=== PATIENT | male | born 1995 | race Caucasian/White ===

== ENCOUNTER 2016-09-08 18:49 | Emergency (ER) | payer OTHER ==
[~2016-09-08] VITALS: Ht 188 cm; Wt 97.4 kg
[2016-09-08 18:51] VITALS: TEMP 36.7; Ht 188 cm; Wt 97.4 kg
[2016-09-08 19:59] LABS: BASO % 0.5 %; BASO ABS # 0.03 K/uL (0-0.2); COMPLETE YES; EOS % 3.4 %; IG% 0.2 %; LYMPH % 32.3 %; LYMPH ABS # 1.97 K/uL (1.2-3.4); MEAN CELL VOLUME 84.9 fL (80-100); MEAN CORPUSCULAR HEMOGLOBIN 31.7 pg (25-34); MEAN CORPUSCULAR HGB CONC 37.3 g/dl (32-36); MEAN PLATELET VOLUME 9.3 fL (7.4-10.4); NEUT % 55.6 %; PLATELET COUNT 254 K/uL (130-400); WHITE BLOOD COUNT 6.09 K/uL (4.8-10.8)
[2016-09-08] MEDS ORDERED: RISP0.5T10 PO (20:05)
[2016-09-08] MEDS ORDERED: LITH1TAB PO (20:05)
[2016-09-08 20:13] LABS: BENZODIAZEPINE, URINE POS (NEG); COCAINE,URINE NEG (NEG); PHENCYCLIDINE, URINE NEG (NEG)
[2016-09-08 20:35] LABS: BUN/CREATININE RATIO 10.5 (10-20); CALCIUM 8.6 mg/dl (8.5-10.1); CREATININE 1.3 mg/dl (0.60-1.40); POTASSIUM 3.8 mmol/L (3.5-5.1)
[2016-09-08 20:39] LABS: ACETAMINOPHEN < 2 ug/ml (10-30)
[2016-09-08 20:46] LABS: ALB/GLOB RATIO 1.5 (0.9-2); THYROID STIMULATING HORMONE 1.71 uIu/ml (0.300-4.500)
--- NOTE | 2016-09-08 21:24 | EMERGENCY ROOM VISIT NOTE ---
History Report prepared by Brandyn: Amy Harmon Under the Supervision of: Dr. Jibmo Carmona D.O. First contact with patient: 18:57 Chief Complaint: DETOX REQUEST Stated Complaint: ALCOHOL WITHDRAWL Nursing Triage Summary: Patient ambulatory to triage, states "I am just withdrawing really bad from alcohol and xanax." Patient last took xanax about 3 hours ago. Last alcoholic beverage was last night. History of Present Illness The patient is a 20 year old male who presents to the Emergency Room with complaints of constant symptoms of withdrawal from Xanax and alcohol beginning tonight. The patient states "I am a mess". He notes he has a pounding headache and muscle aches. He states he normally drinks 3 times a week and his last drink was last night. The patient also notes he does Xanax Wednesday morning through Wednesday night takes 1/4 mg 4 times a day. He states that he "just needs something to help him get through the night before going home tomorrow for spring". Patient denies any other symptoms at this time. Source of History: patient Onset: tonight Position: other (global) Quality: other (withdrawal symptoms) Timing: constant Associated Symptoms: + headache Note: Patient is experiencing muscle aches. He denies any other symptoms at this time. Review of Systems See HPI for pertinent positives & negatives. A total of 10 systems reviewed and were otherwise negative. Past Medical & Surgical Medical Problems: (1) Alcohol intoxication (2) Anxiety Surgical Problems: (1) [place] teeth removed Family History FH: heart disease FHx: alcoholism FHx: cancer FHx: mental illness Hypertension Kidney disease Kidney stones Social History Smoking Status: Current Every Day Smoker Alcohol Use: occasionally Drug Use: marijuana Marital Status: single Housing Status: lives with roommate Occupation Status: [employer] student Current/Historical Medications Scheduled [place] Carbonate Ext Rel (Lithobid Ext Rel), 450 MG PO BID Risperidone (Risperdal), 0.5 MG PO HS Allergies Coded Allergies: No Known Allergies (Unverified , 09/08/16) Physical Exam Vital Signs Date Time Temp Pulse Resp B/P Pulse Ox O2 Delivery O2 Flow Rate FiO2 09/08/16 20:50 69 18 138/97 96 Room Air 09/08/16 18:51 36.7 103 16 142/96 98 Room Air Physical Exam CONSTITUTIONAL/VITAL SIGNS: Reviewed / noted above. GENERAL: Non-toxic in appearance. INTEGUMENTARY: Warm, dry, and [place]. HEAD: Normocephalic. EYES: without scleral icterus or trauma. ENT/OROPHARYNX: clear and moist. LYMPHADENOPATHY/NECK: Is supple without lymphadenopathy or meningismus. RESPIRATORY: Lungs clear and equal. CARDIOVASCULAR: Regular rate and rhythm. GI/ABDOMEN: Soft and nontender. No organomegaly or pulsatile mass. No rebound or guarding. Normal bowel sounds. EXTREMITIES: Warm and well perfused. BACK: No CVA tenderness. NEUROLOGICAL: Intact without focal deficits. PSYCHIATRIC: normal affect. MUSCULOSKELETAL: Normally developed with good muscle tone. Medical Decision & Procedures Laboratory Results 09/08/16 19:46 Red Blood Count 5.30, Mean Corpuscular Volume 84.9, Mean Corpuscular Hemoglobin 31.7, Mean Corpuscular Hemoglobin Concent 37.3, Mean Platelet Volume 9.3, Neutrophils (%) (Auto) 55.6, Lymphocytes (%) (Auto) 32.3, Monocytes (%) (Auto) 8.0, Eosinophils (%) (Auto) 3.4, Basophils (%) (Auto) 0.5, Neutrophils # (Auto) 3.38, Lymphocytes # (Auto) 1.97, Monocytes # (Auto) 0.49, Eosinophils # (Auto) 0.21, Basophils # (Auto) 0.03 09/08/16 19:46 Test 09/08/16 18:58 09/08/16 19:46 Urine Opiates Screen NEG (NEG) Urine Methadone, Qualitative NEG (NEG) Urine Barbiturates NEG (NEG) Urine Phencyclidine (PCP) Level NEG (NEG) Ur Amphetamine/Methamphetamine NEG (NEG) MDMA (Ecstasy) Screen NEG (NEG) Urine Benzodiazepines Screen POS (NEG) Urine Cocaine Metabolite NEG (NEG) Urine Marijuana (THC) NEG (NEG) White Blood Count 6.09 K/uL (4.8-10.8) Red Blood Count 5.30 M/uL (4.7-6.1) Hemoglobin 16.8 g/dL (14.0-18.0) Hematocrit 45.0 % (42-52) Mean Corpuscular Volume 84.9 fL (80-100) Mean Corpuscular Hemoglobin 31.7 pg (25-34) Mean Corpuscular Hemoglobin Concent 37.3 g/dl (32-36) Platelet Count 254 K/uL (130-400) Mean Platelet Volume 9.3 fL (7.4-10.4) Neutrophils (%) (Auto) 55.6 % Lymphocytes (%) (Auto) 32.3 % Monocytes (%) (Auto) 8.0 % Eosinophils (%) (Auto) 3.4 % Basophils (%) (Auto) 0.5 % Neutrophils # (Auto) 3.38 K/uL (1.4-6.5) Lymphocytes # (Auto) 1.97 K/uL (1.2-3.4) Monocytes # (Auto) 0.49 K/uL (0.11-0.59) Eosinophils # (Auto) 0.21 K/uL (0-0.5) Basophils # (Auto) 0.03 K/uL (0-0.2) RDW Standard Deviation 36.2 fL (36.4-46.3) RDW Coefficient of Variation 11.7 % (11.5-14.5) Immature Granulocyte % (Auto) 0.2 % Immature Granulocyte # (Auto) 0.01 K/uL (0.00-0.02) Anion Gap 11.0 mmol/L (3-11) Est Creatinine Clear Calc Drug Dose 104.6 ml/min Estimated GFR () 90.4 Estimated GFR (Non- 78.0 BUN/Creatinine Ratio 10.5 (10-20) Calcium Level 8.6 mg/dl (8.5-10.1) Total Bilirubin 0.9 mg/dl (0.2-1) Aspartate Amino Transf (AST/SGOT) 49 U/L (15-37) Alanine Aminotransferase (ALT/SGPT) 155 U/L (12-78) Alkaline Phosphatase 82 U/L (45-117) Total Protein 7.2 gm/dl (6.4-8.2) Albumin 4.3 gm/dl (3.4-5.0) Globulin 2.9 gm/dl (2.5-4.0) Albumin/Globulin Ratio 1.5 (0.9-2) Thyroid Stimulating Hormone (TSH) 1.710 uIu/ml (0.300-4.500) Salicylates Level < 1.7 mg/dl (2.8-20) Acetaminophen Level < 2 ug/ml (10-30) Ethyl Alcohol mg/dL < 3.0 mg/dl (0-3) Laboratory results as stated above per my review. ECG Indication: other (withdrawal) Rate (beats per minute): 68 Rhythm: sinus with SA Findings: no acute ischemic change, no ectopy ED Course 1899: Previous medical records were reviewed. The patient was evaluated in room A6. A complete history and physical examination was performed. 2113: On reevaluation, the patient is hemodynamically stable. I discussed the results and findings with the patient. He verbalized agreement of the treatment plan. He was discharged home. Medical Decision differential includes toxic ingestions, self-mutilation, suicidal ideation, suicide attempt, depression. This is a 20-year-old male who presents to the ED with a chief complaint of feeling he was in withdrawal from Xanax and alcohol. The patient reports a headache and some achiness. He states that his last alcohol consumption was last night. He normally drinks 3 times per week. He also reports abusing Xanax on the weekends. He states that he uses 25 mg of Xanax 4 times a day over the weekends. Normally on Wednesday, Wednesday and Wednesday. The patient states that he felt unusual tonight and was concerning came in for evaluation. His physical exam was unremarkable. EKG shows a sinus rhythm. Complete metabolic panel was unremarkable. ALT is slightly elevated. TSH is normal. Tox screen is positive for benzos. The patient was told results the test. He appears to be stable. I am not concerned about acute withdrawal. The patient is felt to be stable for discharge. Impression Primary Impression: Anxiety Additional Impression: Substance abuse Scribe Attestation The scribe's documentation has been prepared under my direction and personally reviewed by me in its entirety. I confirm that the note above accurately reflects all work, treatment, procedures, and medical decision making performed by me. Departure Information Dispostion Home / Self-Care Referrals No Doctor, Assigned (PCP) Forms HOME CARE DOCUMENTATION FORM, IMPORTANT VISIT INFORMATION, WORK / SCHOOL INSTRUCTIONS Patient Instructions My [facility] Additional Instructions Follow-up with [facility] for recheck. Return for any worsening or other concerns. Problem Qualifiers
[2016-09-08 21:41] VITALS: BP 130/112; PULSE 76; O2SAT 98
[2016-09-11 12:52] LABS: HYDROXYETHYLFLURAZEPAM CONF NEGATIVE NG/ML (CUTOFF=50); HYDROXYMIDAZOLAM NEGATIVE NG/ML (CUTOFF=50); HYDROXYTRIAZOLAM CONF NEGATIVE NG/ML (CUTOFF=50); TEMAZEPAM CONF NEGATIVE NG/ML (CUTOFF=50)
== END 2016-09-08 21:43 | disposition home or self-care (01) ==
LOC: C.EDB 18:50 → C.EDA 21:43
DX: F41.9 Anxiety disorder, unspecified (principal); F13.10 Sedative, hypnotic or anxiolytic abuse, uncomplicated; F10.10 Alcohol abuse, uncomplicated; F17.210 Nicotine dependence, cigarettes, uncomplicated; Z79.899 Other long term (current) drug therapy

== ENCOUNTER 2016-10-31 21:09 | Emergency (ER) | payer OTHER ==
[~2016-10-31] VITALS: Ht 190.5 cm; Wt 107.9 kg
[2016-10-31 21:09] VITALS: TEMP 36.8; O2SAT 96; Ht 190.5 cm; Wt 107.9 kg
[~2016-10-31 21:09] MED LIST: LITH1TAB PO; RISP0.5T10 PO
[2016-10-31 22:13] LABS: BUN/CREATININE RATIO 9.5 (10-20); CREATININE 1.1 mg/dl (0.60-1.40); POTASSIUM 3.8 mmol/L (3.5-5.1)
[2016-10-31 22:16] LABS: CALCIUM 8.7 mg/dl (8.5-10.1)
--- NOTE | 2016-10-31 23:21 | EMERGENCY ROOM VISIT NOTE ---
History First contact with patient: 21:21 Chief Complaint: ALCOHOL OVERDOSE Stated Complaint: ETOH Nursing Triage Summary: Patient presents to ER via EMS. Patient is responsive and agitated. Patient verbalizes "Do not touch me." to EMS personnel. Patient moved to [address] uneventfully. Patient cooperating with staff. Per EMS, police found patient with friends in the [place] near the [place] lot at [facility]. Patient was compative, agitated and swearing. ROCHELLE .[id number]. History of Present Illness The patient is a 21 year old male who presents to the Emergency Room the [facility] for evaluation of the possible alcohol overdose. History is limited secondary to patient's intoxicated state. Per EMS, the patient was found with friends in the [place] near a tailgate. The patient was apparently combative, agitated and swearing and was brought here for evaluation. The patient admits to drinking liquor tonight. He denies any drug use. He denies any trauma. Review of Systems A complete 10-point Review of Systems was discussed with the patient, with pertinent positives and negatives listed in the History of Present Illness. All remaining Review of Systems questions can be considered negative unless otherwise specified. Past Medical/Surgical History Medical Problems: (1) Alcohol intoxication (2) Anxiety Surgical Problems: (1) [place] teeth removed Family History FH: heart disease FHx: alcoholism FHx: cancer FHx: mental illness Hypertension Kidney disease Kidney stones Social History Smoking Status: Current Every Day Smoker Alcohol Use: occasionally Drug Use: marijuana Marital Status: single Housing Status: lives with roommate Occupation Status: [employer] student Current/Historical Medications Scheduled [place] Carbonate Ext Rel (Lithobid Ext Rel), 450 MG PO BID Scheduled PRN Risperidone (Risperdal), 0.5 MG PO HS PRN for Sleep Allergies Coded Allergies: No Known Allergies (Unverified , 09/08/16) Physical Exam Vital Signs Date Time Temp Pulse Resp B/P Pulse Ox O2 Delivery O2 Flow Rate FiO2 11/01/16 10:06 77 16 133/69 99 11/01/16 09:00 82 18 137/78 96 Room Air 11/01/16 07:01 73 18 149/84 95 Room Air 11/01/16 05:41 99 18 112/69 95 Room Air 11/01/16 04:54 94 11/01/16 04:14 100 18 113/70 93 Room Air 11/01/16 02:18 101 18 109/67 94 Room Air 11/01/16 01:36 103 97 11/01/16 01:06 101 98 11/01/16 01:01 127/90 11/01/16 00:44 106 17 99 11/01/16 00:35 129/80 10/31/16 23:44 103 22 10/31/16 23:14 96 20 10/31/16 23:09 99 20 10/31/16 22:39 104 13 95 10/31/16 22:09 116 13 97 10/31/16 22:06 111/77 10/31/16 21:39 111 27 94 10/31/16 21:23 118 10/31/16 21:14 148/77 10/31/16 21:09 36.8 130 16 148/77 96 Room Air 10/31/16 21:09 96 Room Air Physical Exam VITALS: Vitals are noted on the nurse's note and reviewed by myself. Vital signs stable. GENERAL: This is a 21-year-old male, in no acute distress, nondiaphoretic, well- developed well-nourished. SKIN: The skin was without ecchymosis or edema. HEAD: Normocephalic atraumatic. EARS: External auditory canals clear, tympanic membranes pearly reynolds without erythema or effusion bilaterally. No hemotympanum. EYES: Pupils equal round and reactive to light and accommodation. Extraocular movements intact. Lateral nystagmus noted. NOSE: No deformities. Nares patent. MOUTH: No loose or chipped teeth. NECK: Supple without nuchal rigidity. Cervical spine is nontender. HEART: Regular rate and rhythm without murmurs gallops or rubs. LUNGS: Clear to auscultation bilaterally without wheezes, rales or rhonchi. ABDOMEN: Positive bowel sounds x 4. Soft, nontender. MUSCULOSKELETAL: No deformities noted. Full range of motion throughout. NEURO: Patient was visibly intoxicated and drowsy. He is responsive to verbal stimuli and responds to commands appropriately. Medical Decision & Procedures Laboratory Results 10/31/16 21:47 Test 10/31/16 21:47 Anion Gap 9.0 mmol/L (3-11) Est Creatinine Clear Calc Drug Dose 139.8 ml/min Estimated GFR () 109.9 Estimated GFR (Non- 94.8 BUN/Creatinine Ratio 9.5 (10-20) Calcium Level 8.7 mg/dl (8.5-10.1) Ethyl Alcohol mg/dL 339.0 mg/dl (0-3) Medical Decision Differential diagnosis includes alcohol intoxication, drug use, head trauma, among others. The patient was evaluated as above. He is a 21-year-old male who arrives via BLS for evaluation of alcohol intoxication. The patient is pleasant and cooperative on my examination. Alcohol was 339. Kidney function was within normal limits. Glucose was found to be 110. The patient was placed on the bus monitor and monitored throughout his stay. He was reevaluated multiple times and had no complaints. He initially attempted to find a sober friend, but was unable. When the patient had been here for several hours and his alcohol level was estimated to be under 100, he was discharged to take a taxi home. He was instructed not to drink anymore today. He verbalized understanding and was discharged home in good condition. Impression Primary Impression: Alcoholic intoxication Departure Information Dispostion Home / Self-Care Condition GOOD Referrals No Doctor, Assigned (PCP) Forms HOME CARE DOCUMENTATION FORM, IMPORTANT VISIT INFORMATION Patient Instructions My [facility] Additional Instructions Do not drink any more alcohol today. For pain control, you can use the following [id number] medicines (if >12 yo): - Regular strength (325mg/tab) Tylenol (acetaminophen) 2 tabs every 4-6 hours as needed. Do not exceed 12 tablets in a 24 hour period. Avoid taking more than 4 grams (4000 mg) of Tylenol per day. This includes any other sources of acetaminophen you may take on a regular basis. - Regular strength (200 mg/tab) Advil (ibuprofen) 1-2 tabs every 4-6 hours as needed. Do not exceed a dose of 3200 mg per day. Rest and drink plenty of fluids. Problem Qualifiers Primary Impression: Alcoholic intoxication Complication of substance-induced condition: uncomplicated Qualified Codes: F10.120 - Alcohol abuse with intoxication, uncomplicated
[2016-11-01 10:06] VITALS: BP 133/69; PULSE 77; O2SAT 99
== END 2016-11-01 10:07 | disposition home or self-care (01) ==
LOC: EDBD 21:09 → C.EDA 21:13
DX: F10.129 Alcohol abuse with intoxication, unspecified (principal); Y90.8 Blood alcohol level of 240 mg/100 ml or more; F41.9 Anxiety disorder, unspecified; F17.200 Nicotine dependence, unspecified, uncomplicated; Z79.899 Other long term (current) drug therapy; Z82.49 Family history of ischemic heart disease and other diseases of the circulatory system; Z80.9 Family history of malignant neoplasm, unspecified; Z81.8 Family history of other mental and behavioral disorders; Z84.1 Family history of disorders of kidney and ureter